=== PATIENT | male | born 1970 | race Caucasian/White ===

== ENCOUNTER 2016-12-09 08:10 | Outpatient (CLI) | payer BC ==
[2016-12-09 12:37] LABS: Anion Gap 17 mmol/L (10-20); BUN (Urea Nitrogen) 7 mg/dL (8.9-20.6); Calc. Creatinine Clearance 0 mL/min (70-130); Calcium 8.7 mg/dL (7.8-10.44); Carbon Dioxide 24 mmol/L (22-29); Cardiac Risk 4.8 (Less than 4.5); Chloride 103 mmol/L (98-107); Cholesterol 157 mg/dL (< 200 Desired); Estimated GFR-MDRD Greater than 90; Glucose 167 mg/dL (70-105); HDL Cholesterol 33 mg/dL (>60 Neg Risk); LDL Cholesterol, Calculated 111 mg/dL; Potassium 3.8 mmol/L (3.5-5.1); Sodium 140 mmol/L (136-145); Triglycerides 64 mg/dL (Less than 150)
[2016-12-09 12:42] LABS: Hemoglobin A1c 10.3 % (4.0-6.0)
== END 2016-12-09 08:11 ==
LOC: NAVSJIPCSP 08:10
PROVIDERS: ATTEND Internal Medicine
DX: Z51.81 Encounter for therapeutic drug level monitoring (principal); Z79.899 Other long term (current) drug therapy
CPT/HCPCS: 36415; 80048; 80061; 83036

== ENCOUNTER 2017-03-16 08:53 | Outpatient (CLI) | payer BC ==
[2017-03-16 12:43] LABS: Hemoglobin A1c 8.1 % (4.0-6.0)
[2017-03-16 12:54] LABS: Anion Gap 16 mmol/L (10-20); BUN (Urea Nitrogen) 13 mg/dL (8.9-20.6); Calc. Creatinine Clearance 0 mL/min (70-130); Calcium 8.5 mg/dL (7.8-10.44); Carbon Dioxide 24 mmol/L (22-29); Cardiac Risk 4.8 (Less than 4.5); Chloride 106 mmol/L (98-107); Cholesterol 152 mg/dl (< 200 Desired); Estimated GFR-MDRD Greater than 90; Glucose 157 mg/dL (70-105); HDL Cholesterol 32 mg/dL (>60 Neg Risk); LDL Cholesterol, Calculated 108 mg/dL; Sodium 142 mmol/L (136-145); Triglycerides 59 mg/dL (Less than 150)
[2017-03-16 18:29] LABS: Creatinine, Urine 188.27 mg/dL (63-166); Microalbumin Urine 11.7 mg/dL (0.5-50.0); Microalbumin/Creat Ratio 62.1 mg/g (Less than 30)
== END 2017-03-16 08:54 | disposition home or self-care (01) ==
LOC: NAVSJIPCSP 08:53
PROVIDERS: ATTEND Internal Medicine
DX: E11.9 Type 2 diabetes mellitus without complications (principal)
CPT/HCPCS: 36415; 80048; 80061; 82043; 83036